=== PATIENT | male | born 1955 | race Caucasian/White ===

== ENCOUNTER 2023-05-20 15:27 | Emergency (ER) | payer MEDICARE, SELFPAY ==
[2023-05-20] VITALS (12 sets, daily range): BP systolic 118–149; BP diastolic 78–91; PULSE 72–86; RESP 15–17; TEMP 36.2; O2SAT 95–100
--- NOTE | ~2023-05-20 | XR_ITS ---
EXAM: XR finger 3rd LT min 2V DATE: 05/20/2023 15:48 HISTORY: LAC-INJURY WITH SAW . COMPARISON: None available. FINDINGS: Normal mineralization. No fracture or dislocation. No lytic or blastic lesion. Joint space s are maintained. No erosion or periosteal change. Soft tissues within normal limits. IMPRESSION: No acute osseous finding in the left third digit. Reviewed, dictated and finalized at location K. CONTROL REPRESENTATIVE
--- NOTE | ~2023-05-20 | XR_ITS ---
EXAM: XR finger 2nd LT min 2V DATE: 05/20/2023 15:48 HISTORY: lac - injury w/ saw . COMPARISON: None available. FINDINGS: Osseous detail obscured by overlying bandage material. Normal mineralization. Obliquely or iented fracture/avulsion of the tip of the second distal phalange. No lytic or blastic lesion. Mild s cattered degenerative changes. No erosion or periosteal change. Soft tissue defect over the tip of th e second digit. IMPRESSION: Oblique fracture/avulsion of the tip of the left second distal phalange. Reviewed, dictated and finalized at location K. UAL CLASSROOM MANAGER IMPRESSION: Oblique fracture/avulsion of the tip of the left second distal phal get.
--- NOTE | 2023-05-20 16:04 | ED.WOUNDLAC ---
HPI - Wound/Laceration General Chief Complaint: Wound/Laceration Stated Complaint: lac Time Seen by Provider: 05/20/23 16:00 Source: patient Mode of arrival: ambulatory Limitations: no limitations History of Present Illness HPI narrative: patient is 68 years old white male came to the ED by private car with injury to left index. While using a joint saw At home. Patient does not remember when the last time had a tetanus shot. He denies other injuries. Related Data Allergies Allergy/AdvReac Type Severity Reaction Status Date / Time No Known Allergies Allergy Verified 05/20/23 15:35 Review of Systems Review of Systems: All systems reviewed & are unremarkable except as noted in HPI and below Exam Narrative: General appearance: Well-developed, well-nourished Skin: Normal color Head: Normocephalic, nontraumatic Eyes: Clear conjunctiva E Chest and respiratory: Airway patent, no respiratory distress, no accessory muscle use Heart: Regular rate/rhythm Vascular: Normal peripheral pulses, normal capillary refill. 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 Part of the nail involved, Neurologic: Alert and oriented ?3, CORPORATE AUDITOR is normal as tested, no gross motor deficit Course Consultations Consultation #1: DR MOONEY OUTPATIENT TOMORROW. Date: 05/20/23 Time: 16:55 Vital Signs Vital signs: Vital Signs Temperature 36.2 C L 05/20/23 15:31 Pulse Rate 86 05/20/23 15:31 Respiratory Rate 17 05/20/23 15:31 Blood Pressure 149/82 H 05/20/23 15:31 Pulse Oximetry 100 05/20/23 15:31 Oxygen Delivery Room Air 05/20/23 15:31 Temperature 36.2 C L 05/20/23 15:31 Pulse Rate 72 05/20/23 17:16 Respiratory Rate 15 05/20/23 17:16 Blood Pressure 124/78 05/20/23 17:16 Pulse Oximetry 100 05/20/23 17:16 Oxygen Delivery Room Air 05/20/23 15:31 Discharge Plan Discharge Clinical Impression: Fracture of finger, distal phalanx, left, open Patient Disposition: Home, Self-Care Condition: Stable Instructions: Antibiotic Form, Finger Fracture (ED), Finger Laceration (ED) Additional Instructions: SEE DR MOONEY IN A.M. FOR MANAGEMENT KEEP FINGER ELEVATED, TAKE IBUPROFEN 600 EVERY 6 HOURS NEEDED Prescriptions: New cephalexin 500 mg capsule 500 mg PO Q6H 7 Days Qty: 28 0RF hydrocodone-acetaminophen 5-325 mg tablet 1 tablet PO Q4H Qty: 14 0RF Follow-up/Referrals: Isatu Mooney MD [Physician] - 05/21/23 Loren,Ian Gupta MD [Primary Care Provider] -
[2023-05-20] MEDS: TETANUS,DIPHTHERIA,AC PERTUSSIS ADULT (0.5 ML) BOOSTRIX IM (16:34)
[2023-05-20] MEDS: ceFAZolin 2 GM/D5W 50 ML 2 GM/50 ML BAG IVPB (16:55)
== END 2023-05-20 18:07 | disposition home or self-care (01) ==
PROVIDERS: Emergency Provider Emergency Medicine; PCP Family Medicine
DX: S62.631B Displaced fracture of distal phalanx of left index finger, initial encounter for open fracture (principal); Z23 Encounter for immunization; W27.0XXA Contact with workbench tool, initial encounter
CPT/HCPCS: 73140; 90471; 90715; 96365; 99284; J0690

== ENCOUNTER 2023-08-30 18:22 | Emergency (ER) | payer MEDICARE, SELFPAY ==
--- NOTE | 2023-08-30 18:33 | ED.GENADULT ---
HPI - General Adult General Chief complaint: Fall Stated complaint: fall Time Seen by Provider: 08/30/23 18:33 Source: patient, RN notes reviewed and old records reviewed Mode of arrival: ambulatory Limitations: no limitations History of Present Illness HPI narrative: 68-year-old male to [facility] for complaint of head, neck, left ear pain status post fall. Patient endorses he fell 2-3 hours prior to arrival from the 3rd rung of a ladder backwards onto concrete. Patient endorses LOC for unknown amount time, confusion and visual changes that have since resolved. Pt denies nausea, vomiting, visual changes, dizziness upon arrival. Pt was able to ambulate to exam room with steady gait. Related Data Home Medications Medication Instructions Recorded Confirmed rosuvastatin 5 mg tablet mg 08/30/23 08/30/23 Allergies Allergy/AdvReac Type Severity Reaction Status Date / Time No Known Allergies Allergy Verified 08/30/23 18:34 Review of Systems Review of Systems: All systems reviewed & are unremarkable except as noted in HPI and below Constitutional: Constitutional: Reports as per HPI, Reports headache(s) and Denies weakness Eyes: Eyes: Reports as per HPI, Reports change in vision (Pt endorses change in vision that resolved within moments of injury), Denies diplopia, Denies eye discharge, Denies loss of peripheral vision, Denies loss of vision, Denies other visual disturbances, Denies seeing flashes, Denies photophobia, Denies spots in vision and Denies tunnel vision ENT: Reports system reviewed and no additional complaints, except as documented Cardiovascular: Cardiovascular: Reports no additional cardiovascular complaints, Denies chest pain and Denies dyspnea Respiratory: Respiratory: Reports no additional respiratory complaints, Denies cough and Denies dyspnea Gastrointestinal: Gastrointestinal: Denies abdominal pain Genitourinary: Genitourinary: Reports no additional male genitourinary complaints Musculoskeletal: Musculoskeletal: Reports as per HPI and Reports neck pain Integumentary/Breasts: Skin/Breast: Reports as per HPI and Reports wounds (laceration to posterior head) Neurologic: Reports as per HPI, Denies abnormal gait, Denies dizziness, Denies lack of coordination, Denies numbness, Denies disequilibrium and Denies weakness Psychiatric: Psychiatric: Reports no additional psychiatric complaints [facility] [place] Past Medical History Medical History (Updated 08/30/23 @ 20:09 by Cynthia Vitale APRN) Patient denies medical problems Social History Social History Smoking status: Never smoker Alcohol intake: current Substance use: never Substance use type: marijuana Comments At the time of my signature, I reviewed and agree with the nursing past medical, surgical, social, and family history. There is no relevant family history pertinent to the patient complaint. Exam Const: General: cooperative, healthy appearing, comfortable, no acute distress, alert and well nourished Nutritional Appearance: well nourished Orientation/consciousness: patient oriented x3 Limitations: no limitations HENMT: Head: normal to inspection Ears: external ears normal Face/Nose/Sinus: Normal external nose present, Normal nares present, normal facial exam, No erythema and No edema Face and sinus: normal facial exam, no erythema and no edema Mouth: Yes Normal oral and palatal mucosa present Eyes: General: appearance normal, both eyes and all related structures Alignment and Position: alignment normal and position normal Eyelids: eyelids normal Conjunctivae: conjunctivae normal Pupils: Equal, round and reactive pupils present Neck: Neck: normal visual inspection, full ROM and no meningeal signs Lymphatic: no lymphadenopathy noted and no lymphedema noted Other: no tenderness on palpation Chest: Chest palpation & inspection: normal inspection of the chest
[2023-08-30 18:34] VITALS: BP 143/72; PULSE 78; RESP 18; TEMP 36.8; O2SAT 97
== END 2023-08-30 18:53 | disposition short-term general hospital (02) ==
PROVIDERS: Emergency Provider Nurse Practitioner Family; PCP Family Medicine
DX: S06.9X9A Unspecified intracranial injury with loss of consciousness of unspecified duration, initial encounter (principal); S01.01XA Laceration without foreign body of scalp, initial encounter; W11.XXXA Fall on and from ladder, initial encounter
CPT/HCPCS: 99212; G0463

== ENCOUNTER 2023-08-30 19:05 | Emergency (ER) | payer MEDICARE, SELFPAY ==
--- NOTE | ~2023-08-30 | CT_ITS ---
EXAMINATION: CT cervical spine wo con DATE: 08/30/2023 20:00 INDICATION: Head injury TECHNIQUE: Computed tomography (CT) of the cervical spine was performed without intravenous contrast. The dose-length product (DLP) was 540.93 mGy-cm. Automated exposure control and iterative reconstruc tion technique were employed. COMPARISON: None FINDINGS: There are 2 mm of anterolisthesis of C4 on C5. Bone alignment is otherwise normal. There is no fracture. The vertebral body heights are maintained. There is severe loss of intervertebral disc space height at C5-C6 and C6-7. The odontoid process is intact. There is multilevel severe facet and uncovertebral joint osteoarthritis. IMPRESSION: 1. Severe cervical spondylosis without acute findings. Reviewed, dictated and finalized at location F.
--- NOTE | ~2023-08-30 | CT_ITS ---
EXAMINATION: CT brain wo con INDICATION: Head injury COMPARISON: None TECHNIQUE: Standard unenhanced head CT. The dose-length product (DLP) was 756.67 mGy-cm. The mA was a djusted according to patient size. Iterative reconstruction technique was employed. FINDINGS: No intracranial hemorrhage, acute infarction, or abnormal mass lesion. The ventricles are n ormal. No abnormal mass effect or midline shift. The shields-white matter differentiation is normal. The basal cisterns are patent. There is a posterior scalp hematoma. The orbits are normal. The paranasal sinuses, mastoids and calvarium are normal. IMPRESSION: 1. No acute intracranial abnormality. Reviewed, dictated and finalized at location F.
[2023-08-30 19:11] VITALS: BP 145/77; PULSE 84; RESP 16; TEMP 36.5; O2SAT 99
[2023-08-31 01:21] VITALS: BP 191/78; PULSE 78; RESP 18; O2SAT 98
--- NOTE | 2023-08-31 01:26 | PC.NURSE ---
per SETH Correa this RN removed C collar on patient.
--- NOTE | 2023-08-31 01:28 | PC.NURSE ---
this rn placed pt in room. pt family member stated that pt took 200mg of ibuprofuen not too long ago due to pt headache/ right clavicle pain.
--- NOTE | 2023-08-31 03:18 | PC.NURSE ---
ON 08/31/2023 AT 0300 PT WAS VISUALIZED EXITING THIS ED WITH ALL OF HIS BELONGINGS WITH A STEADY GAIT. EDP MADE AWARE. PT LEAVING PRIOR TO BEING SEEN BY EDP.
== END 2023-08-31 03:00 | disposition left against medical advice (07) ==
PROVIDERS: Emergency Provider Emergency Medicine; PCP Family Medicine
DX: S09.90XA Unspecified injury of head, initial encounter (principal); W11.XXXA Fall on and from ladder, initial encounter
CPT/HCPCS: 70450; 72125; 99199